=== PATIENT | male | born 1965 | race Caucasian/White ===

== ENCOUNTER → 2016-10-19 | Outpatient (CLI) | payer BC ==
[~2016-10-19] MED LIST: FENOFIBRATE160 MG PO; PREDNISONE50 MG PO
== END ==
LOC: RT 16:00
DX: R00.2 Palpitations (principal)

== ENCOUNTER → 2017-07-08 | Outpatient (CLI) | payer BC ==
--- NOTE | 2017-07-08 09:08 | RADIOLOGY REPORT PS360 ---
CHEST(2 VIEWS-NOT PORTABLE) Ordering physician: Zeb Coto MD Age: 51 years Male INDICATION: chest symptomsFATIGUE, DYSPNEA,HLP PROCEDURE: CHEST(2 VIEWS-NOT PORTABLE) FINDINGS: Previous chest film August 2010 used for comparison Again upper normal prominence the left josiah observed similar to the previous study. No focal infiltrate. No significant new findings. Suggestion mild chronic changes. Lungs well expanded and clear with nothing definitely acute. No pneumothorax. No pleural effusion. Heart normal size. Normal pulmonary vascularity. Hilar and mediastinal structures appear satisfactory. . Degenerative changes T-spine with old compression fractures mid T-spine again noted similar to previous study. Mineralization. IMPRESSION ----- Nothing definitely acute no significant change since previous study. Generous upper normal left josiah appears similar prior study 2010. Stable old mild compression fractures mid T-spine again noted
[2017-07-08 09:36] LABS: HEMOGLOBIN 14.7 g/dL (14.1-18.0); LYMPH # 2.3 K/mm3 (0.7-4.5); LYMPH % 32.4 % (10-50)
--- NOTE | 2017-07-08 10:02 | RADIOLOGY REPORT PS360 ---
HAND-RT 3 VIEWS HISTORY: Pain ARTHRALGIA ORDERING PHYSICIAN: Zeb Coto MD PATIENT AGE: 51 years COMPARISON: None FINDINGS: No fracture or dislocation. No lytic or blastic change. There is normal mineralization. The joint spaces are well-preserved. No significant degenerative/arthritic changes. No erosive changes evident. IMPRESSION: Negative right hand., no acute finding
--- NOTE | 2017-07-08 10:02 | RADIOLOGY REPORT PS360 ---
HAND-LT-3 VIEWS HISTORY: Left hand pain ARTHRALGIA ORDERING PHYSICIAN: Zeb Coto MD PATIENT AGE: 51 years COMPARISON: None FINDINGS: No fracture or dislocation. No lytic or blastic change. There is normal mineralization. The joint spaces are well-preserved. No significant degenerative/arthritic changes. No erosive changes evident. IMPRESSION: Negative left hand, no acute finding
[2017-07-08 11:36] LABS: BUN 21 mg/dL (7-18); GFR (ESTIMATED) 64 ML/MIN (>60)
[2017-07-09 07:38] LABS: RA Latex Turbid. <10.0 IU/mL (0.0-13.9)
[2017-07-09 08:44] LABS: Vitamin D, 25-Hydroxy 24.3 ng/mL (30.0-100.0)
[2017-07-09 16:41] LABS: Antinuclear Antibodies, IFA Negative (.)
== END ==
LOC: LAB 08:31
PROVIDERS: Family Medicine
DX: R53.83 Other fatigue (principal); E78.5 Hyperlipidemia, unspecified; R06.09 Other forms of dyspnea; M25.50 Pain in unspecified joint